=== PATIENT | female | born 1960 | race African-American/Black ===

== ENCOUNTER 2022-03-09 00:04 | Emergency (ER) | payer SELFPAY ==
[2022-03-09] MEDS ORDERED: IBUPROFEN 400 MG TAB ONE (00:33)
[2022-03-09] MEDS ORDERED: IBUPROFEN 200 MG TAB PO ONE (00:33)
[2022-03-09 01:13] LABS: Absolute Lymphocytes (CBC) 3.4 K/uL (0.7-4.9); Hematocrit 41.2 % (36.0-45.0); Lymphocytes % 45.2 % (15.3-44.8); RBC Red Blood Cell Count 4.34 M/uL (3.86-4.86)
[2022-03-09 01:35] LABS: Potassium 3.6 mmol/L (3.5-5.1)
--- NOTE | 2022-03-09 02:29 | ER ---
Nurse's Notes [facility] Name: Fatuma Dalton Age: 61 yrs Sex: Female : 1960 Arrival Date: 03/09/2022 Time: 00:06 Bed 7 Private MD: Diagnosis: Cough Presentation: 03/09 00:06 Chief complaint: Patient states: "I was fixing my bed and fell out - started having an al4 asthma attack. I think its just the liquor though. My doctor told me to stop drinking liquor and smoking but I am too hard headed.". Coronavirus screen: Vaccine status: Patient reports being unvaccinated. Ebola Screen: No symptoms or risks identified at this time. Initial Sepsis Screen:. Risk Assessment: Do you want to hurt yourself or someone else? Patient reports no desire to harm self or others. Onset of symptoms was March 09, 2022. 00:06 Method Of Arrival: EMS: [facility] al4 00:06 Acuity: MARIANNE 3 al4 00:16 Initial Sepsis Screen: Does the patient meet any 2 criteria? No. Patient's initial al4 sepsis screen is negative. Does the patient have a suspected source of infection? No. Patient's initial sepsis screen is negative. Triage Assessment: 00:09 General: Appears in no apparent distress. comfortable, Behavior is cooperative, al4 agitated, patient c/o chronic pain in BL knees. Patient denies trouble urinating, sob, and pain. Patient reports having 4 shots of liquor and 4 tall beers prior to arrival. Patient states she is here because of an asthma attack and denies having a seizure. Patient is able to speak in complete sentences with no slurring. Strength is equal in LUDMILA and BLL extremities.. Pain: Denies pain. Neuro: Level of Consciousness is awake, alert, obeys commands, Oriented to person, place, situation, Speech is normal. Cardiovascular: Patient's skin is warm and dry. Respiratory: Reports cough that is Airway is patent Respiratory effort is unlabored, Respiratory pattern is regular. GI: Patient currently denies diarrhea, nausea, vomiting. Historical: - Allergies: 00:09 PENICILLINS; al4 00:09 Aspirin; al4 00:09 Tylenol; al4 - PMHx: 00:09 Asthma; Seizure; Hypertensive disorder; Diabetes mellitus; Anxiety; al4 - Immunization history:: Adult Immunizations up to date, Client reports having NOT received the Covid vaccine. Flu vaccine is not up to date. - Social history:: Smoking status: Patient reports the use of cigarette tobacco products, Patient uses alcohol, on a daily basis. Screenin:15 Abuse screen: Denies threats or abuse. Nutritional screening: No deficits noted. al4 Tuberculosis screening: No symptoms or risk factors identified. Fall Risk No fall in past 12 months (0 pts). IV access (20 points). Ambulatory Aid- None/Bed Rest/Nurse Assist (0 pts). Gait- Normal/Bed Rest/Wheelchair (0 pts) Mental Status- Oriented to own ability (0 pts). Total Bruce Fall Scale indicates No Risk (0-24 pts). Assessment: 03/08 23:59 Reassessment: patient arrived to hospital demanding to use the restroom before EMS al4 could give report. patient was offered a bedpan and strongly declined stating "I am getting up to walk to the restroom". [employer]'s educated patient on the risks of walking to restroom before being assessed, but patient crawled out of bed anyway. RN walked patient to the restroom. 03/09 00:29 Reassessment: patient states she is not allergic to ibuprofen and is able to take it al4 with no problems at home. 01:00 Reassessment: Patient appears in no apparent distress at this time. Patient and/or al4 family updated on plan of care and expected duration. Pain level reassessed. Vital Signs: 00:09 BP 118 / 90; Pulse 92; Resp 19; Pulse Ox 100% ; Weight 48.08 kg; Height 5 ft. 3 in. al4 (160.02 cm); Pain 0/10; 01:00 BP 115 / 79; Pulse 82; Resp 14 S; Pulse Ox 100% on R/A; al4 02:23 BP 103 / 70; Pulse 111; Resp 18; Pulse Ox 99% on R/A; kd3 00:09 Body Mass Index 18.78 (48.08 kg, 160.02 cm) al4 ED Course: 00:06 Patient arrived in ED. al4 00:06 Cl Cote is Primary Nurse. al4 00:07 Osmar Whalen MD is Attending Physician. kdr 00:08 Triage completed. al4 00:09 Arm band placed on right wrist. al4 00:15 Patient has correct armband on for positive identification. Placed in gown. al4 00:15 Maintain EMS IV. Dressing intact. Good blood return noted. Site clean \\T\\ dry. Gauge \\T\\ al 4 site: 20G Left AC. 00:16 monitor technician on. Pulse ox on. NIBP on. al4 01:17 CXR XRAY In Process Unspecified. EDMS 02:39 No provider procedures requiring assistance completed. IV discontinued, intact, kd3 bleeding controlled, No redness/swelling at site. Pressure dressing applied. Administered Medications: 00:31 Drug: Motrin (ibuprofen) 600 mg Route: PO; al4 01:29 Follow up: Response: No adverse reaction; Pain is decreased al4 Outcome: 02:28 Discharge ordered by . kdr 02:39 Discharged to home via wheelchair. kd3 02:39 Condition: stable 02:39 Discharge instructions given to patient, family, Instructed on discharge instructions, follow up and referral plans. medication usage, Demonstrated understanding of instructions, follow-up care, medications, Prescriptions given X 1. 02:39 Patient left the ED. kd3 Signatures: Dispatcher [employer] EDMS Osmar Whalen MD MD kdr Ida Cabral RN RN kd3 Cl Cote al4 Corrections: (The following items were deleted from the chart) 00:16 00:06 Chief complaint: Patient states: "I was fixing my bed and fell out - started al4 having an asthma attack. I think its just the liquor though. My doctor told me to stop drinking liquor and smoking but I am too hard headed." al4 00:27 00:09 General: Appears in no apparent distress. uncomfortable, Behavior is cooperative, al4 agitated, al4 01:14 01:13 Reassessment: Patient appears in no apparent distress at this time. Patient al4 and/or family updated on plan of care and expected duration. Pain level reassessed. al4
--- NOTE | 2022-03-09 02:29 | EDPHYS ---
Physician Documentation [facility] Name: Fatuma Dalton Age: 61 yrs Sex: Female : 1960 Arrival Date: 03/09/2022 Time: 00:06 Bed 7 Private MD: ED Physician Osmar Whalen HPI: 03/09 00:58 This 61 yrs old Female presents to ER via EMS with complaints of Seizure. kdr 00:58 EMS was called to the house for possible seizure and altered mental status. Patient kdr states that she drinks hard liquor and beer on a regular basis. She does not admit to any prior seizure history. She otherwise appears in her standard state of health. She does relate on initial exam in the ED that she has had an asthma attack however her exam does not seem consistent with that. Further EMS does not report any such activity. Onset: The symptoms/episode began/occurred suddenly, just prior to arrival. Severity of symptoms: At their worst the symptoms were mild in the emergency department the symptoms are unchanged. The patient has not experienced similar symptoms in the past. The patient has not recently seen a physician. Historical: - Allergies: 00:09 PENICILLINS; al4 00:09 Aspirin; al4 00:09 Tylenol; al4 - PMHx: 00:09 Asthma; Seizure; Hypertensive disorder; Diabetes mellitus; Anxiety; al4 - Immunization history:: Adult Immunizations up to date, Client reports having NOT received the Covid vaccine. Flu vaccine is not up to date. - Social history:: Smoking status: Patient reports the use of cigarette tobacco products, Patient uses alcohol, on a daily basis. ROS: 00:58 Constitutional: Negative for fever, chills, and weight loss, Eyes: Negative for injury, kdr pain, redness, and discharge, ENT: Negative for injury, pain, and discharge, Neck: Negative for injury, pain, and swelling, Cardiovascular: Negative for chest pain, palpitations, and edema, Respiratory: Negative for shortness of breath, cough, wheezing, and pleuritic chest pain, Abdomen/GI: Negative for abdominal pain, nausea, vomiting, diarrhea, and constipation, Back: Negative for injury and pain, : Negative for injury, bleeding, discharge, and swelling, MS/Extremity: Negative for injury and deformity, Skin: Negative for injury, rash, and discoloration, Psych: Negative for depression, anxiety, suicide ideation, homicidal ideation, and hallucinations, Allergy/Immunology: Negative for hives, rash, and allergies, Endocrine: Negative for neck swelling, polydipsia, polyuria, polyphagia, and marked weight changes, Hematologic/Lymphatic: Negative for swollen nodes, abnormal bleeding, and unusual bruising. 00:58 Neuro: Positive for altered mental status, seizure activity, weakness, Negative for headache, speech changes, syncope, near syncope, tingling, tinnitus, tremor, visual changes. Exam: 00:58 Constitutional: This is a well developed, well nourished patient who is awake, alert, kdr and in no acute distress. Head/Face: Normocephalic, atraumatic. Eyes: Pupils equal round and reactive to light, extra-ocular motions intact. Lids and lashes normal. Conjunctiva and sclera are non-icteric and not injected. Cornea within normal limits. Periorbital areas with no swelling, redness, or edema. Neck: Trachea midline, no thyromegaly or masses palpated, and no cervical lymphadenopathy. Supple, full range of motion without nuchal rigidity, or vertebral point tenderness. No Meningismus. Chest/axilla: Normal chest wall appearance and motion. Nontender with no deformity. No lesions are appreciated. Cardiovascular: Regular rate and rhythm with a normal S1 and S2. No gallops, murmurs, or rubs. Normal PMI, no JVD. No pulse deficits. Respiratory: Lungs have equal breath sounds bilaterally, clear to auscultation and percussion. No rales, rhonchi or wheezes noted. No increased work of breathing, no retractions or nasal flaring. Abdomen/GI: Soft, non-tender, with normal bowel sounds. No distension or tympany. No guarding or rebound. No evidence of tenderness throughout. Back: No spinal tenderness. No costovertebral tenderness. Full range of motion. Skin: Warm, dry with normal turgor. Normal color with no rashes, no lesions, and no evidence of cellulitis. MS/ Extremity: Pulses equal, no cyanosis. Neurovascular intact. Full, normal range of motion. Neuro: Awake and alert, GCS 15, oriented to person, place, time, and situation. Cranial nerves II-XII grossly intact. Motor strength 5/5 in all extremities. Sensory grossly intact. Cerebellar exam normal. Normal gait. Psych: Awake, alert, with orientation to person, place and time. Behavior, mood, and affect are within normal limits. Vital Signs: 00:09 BP 118 / 90; Pulse 92; Resp 19; Pulse Ox 100% ; Weight 48.08 kg; Height 5 ft. 3 in. al4 (160.02 cm); Pain 0/10; 01:00 BP 115 / 79; Pulse 82; Resp 14 S; Pulse Ox 100% on R/A; al4 02:23 BP 103 / 70; Pulse 111; Resp 18; Pulse Ox 99% on R/A; kd3 00:09 Body Mass Index 18.78 (48.08 kg, 160.02 cm) al4 MDM: 00:58 Data reviewed: vital signs, nurses notes, lab test result(s), radiologic studies. kdr Counseling: I had a detailed discussion with the patient and/or guardian regarding: the historical points, exam findings, and any diagnostic results supporting the discharge/admit diagnosis, lab results, radiology results. 02:28 Patient medically screened. kdr 03/09 00:22 Order name: CBC with Diff; Complete Time: 01:25 kdr 03/09 00:22 Order name: Chem 7; Complete Time: 02:29 kdr 03/09 00:22 Order name: CXR XRAY kdr 03/09 00:22 Order name: ETOH Level; Complete Time: 01:25 kdr Administered Medications: 00:31 Drug: Motrin (ibuprofen) 600 mg Route: PO; al4 01:29 Follow up: Response: No adverse reaction; Pain is decreased al4 Disposition Summary: 03/09/22 02:28 Discharge Ordered Location: Home kdr Problem: new kdr Symptoms: have improved kdr Condition: Stable kdr Diagnosis - Cough kdr Followup: kdr - With: Private Physician - When: 2 - 3 days - Reason: If symptoms return, Further diagnostic work-up, Recheck today's complaints, Continuance of care, Re-evaluation by your physician Discharge Instructions: - Discharge Summary Sheet kdr - Cough, Adult, [id number] kdr Forms: - Medication Reconciliation Form kdr - Thank You Letter kdr Prescriptions: - Tessalon Perles 100 mg Oral Capsule - take 1 capsule by ORAL route every 8 hours As needed; 15 capsule; Refills: 0, kdr Product Selection Permitted Signatures: Dispatcher [employer] [facility], Osmar, MD MD kdr Cl Coet
[2022-03-09 02:48] VITALS: BP 103/70; O2SAT 99
--- NOTE | 2022-03-10 17:57 | RAD REPORT ---
EXAM DESCRIPTION: Chest Single View CLINICAL HISTORY: 61 years Female, COUGH COMPARISON: None. FINDINGS: No consolidation. No pneumothorax. No significant pleural effusion. Cardiomediastinal silhouette is unremarkable. Osseous structures are unremarkable. IMPRESSION: No acute findings. Electronically signed by: Be Black MD 03/09/2022 1:54 AM CDT Due to temporary technical issues with the PACS/Fluency reporting system, reports are being signed by the in house radiologists without review as a courtesy to insure prompt reporting. The interpreting radiologist is fully responsible for the content of the report.
== END 2022-03-09 02:39 | disposition home or self-care (01) ==
LOC: ER 00:04
DX: R05.9 Cough, unspecified (principal); R41.82 Altered mental status, unspecified; E11.9 Type 2 diabetes mellitus without complications; I10 Essential (primary) hypertension; Z72.0 Tobacco use; Z88.0 Allergy status to penicillin; Z88.6 Allergy status to analgesic agent
CPT/HCPCS: 36415; 71045; 80048; 80320; 85025; 99284